=== PATIENT | female | born 1960 | race Caucasian/White ===

== ENCOUNTER 2016-12-19 08:45 | Day surgery (SDC) | payer BC ==
[~2016-12-19] VITALS: Ht 157.5 cm; Wt 54.9 kg
[~2016-12-19 08:45] MED LIST: ACETAMINOPHEN1 EACH PO; ZOFRAN ODT4 MG PO
--- NOTE | 2016-12-19 11:56 | NUR ---
12/19/16 1156 Deepika Fountain 1144 PATIENT ARRIVES TO PACU AWAKE OFF/ON, DROWSY. HAS NO FEELING IN RIGHT ARM . ELEVATED WITH PILLOW, AND ICE APPLIED. WARM BLANKETS AND BEAR HUGGER ON PER PATIENT REQUEST.
[2016-12-19] MEDS ORDERED: NORCO 7.5-3251 EACH PO (12:38)
--- NOTE | 2016-12-19 13:23 | NUR ---
SLING PLACED TO RIGHT ARM. PT UP TO THE BATHROOM WITH STBY ASST. TOLERATED WELL WITH VOID NOTED. PT BACK TO BED AND REQUESTING TO DC HOME.
--- NOTE | 2016-12-20 08:18 | OR ---
[facility] [address] [place], [place] [address] Signed DATE OF SERVICE: 12/19/2016 PREOPERATIVE DIAGNOSIS: Distal radial fracture of right with displacement. POSTOPERATIVE DIAGNOSIS: Distal radial fracture of right with displacement. PROCEDURE PERFORMED: Open reduction and internal fixation. SURGEON: Sachin Best MD ANESTHESIA: General. SPECIMENS OR COMPLICATIONS: There were no specimens or complications. TOURNIQUET TIME: Was about 40 minutes. WHAT WAS DONE: The patient was taken to the operating room. After anesthesia was induced and the airway secured, the right upper extremity was positioned, prepped and draped in a routine sterile fashion. The fracture was manipulatively reduced and then I exsanguinated the arm with the Esmarch bandage. Pneumatic tourniquet was inflated to 250 mmHg pressure and we placed the patient in 10 pounds of fin keyon trap traction. A volar incision was made directly over the FCR tendon. Skin was divided sharply beginning at the distal wrist flexion crease and extending proximally for about 6 cm. After dividing the skin, subcutaneous tissue was bluntly spread. The FCR tendon sheath was opened on its volar than on its dorsal surface. A fingertip was used to sweep all the volar contents in an ulnar direction and 2 small self-retaining retractors were placed. A portion of the was then released and the fracture site identified. The fracture reduction was then finetuned using a dental pick tool and a small Hastings elevator. We then placed an 8 x 3 hole distal volar radial plate and aligned it under fluoroscopic control. It was secured proximally with three 2.7 mm screws and distally with four smooth 1.8 mm pegs. AP, lateral and oblique fluoroscopy confirmed a good reduction. The wound was gently irrigated and closed in standard fashion. A sterile dressing, a bulky dressing, and a volar splint were placed. The patient was awakened to the recovery room where she arrived in stable condition. Counts were correct and antibiotic protocols were followed. Electronically Signed By: SACHIN BEST MD 12/20/16817 PATIENT NAME: IVONNE GAN OPERATIVE REPORT DATE OF : 56 PHYSICIAN: SACHIN BEST MD REPORT #: [id number] REPORT IS CONFIDENTIAL AND NOT TO BE RELEASED WITHOUT AUTHORIZATION [address] [address] Signed Sachin Best MD WFB/Modl /[id number] Electronically Signed By: SACHIN BEST MD 12/20/16817 PATIENT NAME: IVONNE GANE OPERATIVE REPORT DATE OF : 56 PHYSICIAN: SACHIN BEST MD REPORT #: [id number] REPORT IS CONFIDENTIAL AND NOT TO BE RELEASED WITHOUT AUTHORIZATION
== END 2016-12-19 13:30 | disposition home or self-care (01) ==
LOC: DS 08:45 → OPS 08:45 → DS 11:00 → OPS 11:00
PROVIDERS: Orthopaedic Surgery
PROC: 0PSH04Z Reposition Right Radius with Internal Fixation Device, Open Approach (ICD-10-PCS; principal; 2016-12-19 10:00)
DX: S52.501A Unspecified fracture of the lower end of right radius, initial encounter for closed fracture (principal); Z88.0 Allergy status to penicillin; Z88.2 Allergy status to sulfonamides; Z88.5 Allergy status to narcotic agent
CPT/HCPCS: 01830; 64415; 64417; 73100; 73110; 76942; C1713; J0690; J1100; J2250; J2405; J2704; J2795; J3010; J7120

== ENCOUNTER 2021-10-05 14:06 | Emergency (ER) | payer BC ==
[~2021-10-05] VITALS: Ht 157.5 cm; Wt 63.5 kg
[~2021-10-05 14:06] MED LIST changes: +NORCO 5-325 TA1 EACH PO; +NORCO 7.5-3251 EACH PO
== END 2021-10-05 15:51 | disposition home or self-care (01) ==
LOC: ED 14:06
DX: R20.2 Paresthesia of skin (principal); F17.210 Nicotine dependence, cigarettes, uncomplicated; Z88.2 Allergy status to sulfonamides; Z88.0 Allergy status to penicillin; Z88.8 Allergy status to other drugs, medicaments and biological substances
CPT/HCPCS: 99283

== ENCOUNTER 2022-02-15 07:20 | Day surgery (SDC) | payer BC ==
[~2022-02-15] VITALS: Ht 157.5 cm; Wt 63.2 kg
[~2022-02-15 07:20] MED LIST changes: +ULTRAM50 MG PO
[2022-02-15] MEDS ORDERED: AMLODIPINE BESYL5 MG PO (07:54)
[2022-02-15] MEDS ORDERED: LOSARTAN POTAS100 MG PO (07:55)
[2022-02-15] MEDS ORDERED: FLUOXETINE HCL20 MG PO (07:55)
[2022-02-15] MEDS ORDERED: TOPROL XL50 MG PO (07:55)
[2022-02-15] MEDS ORDERED: OXYCODONE HCL5 MG PO (11:27)
[2022-02-15] MEDS ORDERED: SENNA LAX8.6 MG PO (11:27)
[2022-02-15] MEDS ORDERED: GABAPENTIN300 MG PO (11:27)
[2022-02-15] MEDS ORDERED: DICLOFENAC SODI75 MG PO (11:27)
--- NOTE | 2022-02-15 11:40 | NUR ---
02/15/22 1140 Deepika Webb 1123 PATIENT ARRIVES TO PACU AWAKE OFF/ON, BUT DROWSY. RESTING WITH EYES CLOSED, WHEN AWAKE REPORTS PAIN AT 7/10, THEN BACK TO SLEEP. WARM BLANKETS AND BRET PAWS ON PER REQUEST. 1138 PATIENT AWAKE OFF/ON, BUT STILL VERY DROWSY. MOSTLY RESTING WITH EYES CLOSED. WHEN ASKED PATIENT REPORTS PAIN OF 7/10, THEN BACK TO SLEEP. RESP EVEN AND UNLABORED, OXYGEN OFF.
--- NOTE | 2022-02-15 13:05 | NUR ---
PROVIDED PATIENT WITH JELLO AND CRACKERS. DENIES NAUSEA. MEDICATED FOR PAIN PER EMAR. STOOD AT EDGE OF BED WITH RN AND PHYSICAL THERAPIST. PT BECOMES DIZZY AND "WOOZY". RETUREND TO BED AND POSITIONED FOR COMFORT. CALL LIGHT IN REACH.
--- NOTE | 2022-02-15 13:38 | NUR ---
CRACKERS AND WATER GIVEN TO PATIENT. REPORT GIVEN TO TREMAYNE HERNANDES WHO IS ASSUMING CARE OF THIS PATIENT.
--- NOTE | 2022-02-15 14:31 | NUR ---
LE 1340 PATIENT SITTING IN BED. LEG ELEVATED. CRYO CUFF APPLIED TO PATIENT. SCD FOOT PUMPS ON. PATIENT IS ALERT AND ORIENTED. PATIENT STATES PAIN IS RIGHT AROUND A 2/10 AT SURGICAL SITE. PATIENT DENIES BEING NAUSEATED. PATIENT DRINKING WATER AND TALKING TO FAMILY. LUNCH ORDERED FOR PATIENT. LE 1400 PT IN WITH PATIENT. BLOOD PRESSURE SITTING AT EDGE OF BED. 76/50. PATIENT BACK TO BED. BLOOD PRESSURE TAKEN 100/53. PATIENT FEELS LIGHT HEADED. JEREMY MONTE NOTIFIED. 500 MLS BOLUS STARTED. PATIENT EATING LUNCH. FAMILY AT BEDSIDE. CALL LIGHT WITHIN REACH NO FUTHER NEEDS.
--- NOTE | 2022-02-15 14:48 | NUR ---
LE 1430 PATIENT BLOOD PRESSURE 103/55 MAP (68). JEREMY MONTE NOTIFIED. PATIENT GIVEN ANOTHER 500 ML BOLUS. PATIENT BLADDER SCANED 191 MLS. LE 1445 PATIENT ALERT AND ORIENTED. BREATHING EQUAL AND UNLABORED. OXYGEN SATURATIONS ABOVE 95% ON ROOM AIR. IVF INFUSING. SCD'S ON YISEL FEET. CRYO CUFF IN PLACE. RIGHT EXTERMITY ELEVATED. PATIENT STATES PAIN IS TOLERABLE. PATIENT DENIES BEING NAUSEATED. PATIENT DENIES NEEDING TO VOID. CALL LIGHT WITHIN REACH NO FUTHER NEEDS. NO QUESTIONS AT THIS TIME.
--- NOTE | 2022-02-15 16:30 | NUR ---
LE 1515 PT IN WITH PATIENT. PATIENT AMBULATED TO RESTROOM. PATIENT VOIDED 200 MLS OF CONCENTRATED YELLOW URINE. LE 1530 PATIENT BACK WITH PT. PATIENT LOWER PART OF DRESSING SATURATED WITH PETER RED BLOOD. DR. AVILES NOTIFIED. DRESSING RENFORCED WITH 3 ABD PADS AND 3 CAST PADDING. 2 PASQUALE WRAPS AROUND. PATIENT SAYS PAIN IS TOLERABLE. VERBAL ORDER FOR TXA. LE [address] AVILES WANTS PATIENT TO STAY FOR EXTENDED STAY. NEWSPAPER MANAGER NOTIFIED. LE 1605 PATIENT IS ALERT AND ORIENTED. BREATHING EQUAL AND UNLABORED. OXYGEN SATURATIONS ABOVE 90% ON ROOM AIR. PATIENT DENIES PAIN OR BEING NAUSEATED. PATIENT SALINE LOCKED. CRYO CUFF ON. SCD'S ON FEET. LEG ELEVATED. CALL LIGHT WITHIN REACH NO FUTHER NEEDS. NO QUESTIONS AT THIS TIME.
--- NOTE | 2022-02-15 17:30 | NUR ---
PT ARRIVES TO CCU FLOOR VIA STRETCHER WITH DS RN - PT ALERT AND ORIENTED. DENIES PAIN. AMBULATES FROM STRETCHER TO BED WITHOUT DIFFIUCLTY. SCDS IN PLACE. PT ORDERED DINNER. VS STABLE, BP WNL, AFEBRILE, ON ROOM AIR. PT ORIENTED TO ROOM AND CALL LIGHT, DENIES FURTHER NEEDS AT THIS TIME.
--- NOTE | 2022-02-15 17:47 | NUR ---
LE 1740 PATIENT WAS TRANSFERRED TO CRITICAL CARE UNIT ROOM 126 FOR OBSERVATION. PATIENT WAS TRANSFERRED TO BED. TOLERATED IT WELL. REPORT GIVEN TO TREMAYNE HERNANDEZ. NO QUESTIONS AT THIS TIME. 3 RN'S IN ROOM AT THIS TIME. NO FUTHER NEEDS.
--- NOTE | 2022-02-15 18:16 | NUR ---
RN IN ROOM TO ASSIST PT TO THE BATHROOM USING FWW - PT VOIDS WITHOUT PAIN OR DIFFICULTY, BM NOTED. PT ABLE TO PROVIDE SELF CARE WITH TOILETING. BACK TO BED WITH CALL LIGHT IN REACH.
--- NOTE | 2022-02-15 20:30 | NUR ---
PATIENT REPORTS PAIN "GETTING UP THERE", 8/10 BUT TOLERABLE. PATIENT MOVES EASILY TO GET UP THE BATHROOM. MINIMAL ASSIST REQUIRED. PATIENT VOIDED AND RETURNED TO BED. NO SIGNS OF BLEEDING ON HER DRESSING, ON-Q PUMP IN PLACE. PRN OXY PROVIDED WITH SCHEDULED TORADOL. PATIENT IS SL. GOOD APPETITE. NO NAUSEA. VS STABLE. CRYO REFILLED WITH ICE AND IN PLACE. FOOT PUMPS IN PLACE. TEDHOSE ON YISEL LOWER EXTREMITIES. PATIENT DENIED FURTHER NEEDS. CALL LIGHT IN REACH. LIGHTS DIMMED.
--- NOTE | 2022-02-15 23:00 | NUR ---
PATIENT WOKE EASILY WHEN RN ENTERED THE ROOM. ASSISTED UP TO THE BATHROOM. PATIENT REQUIRES MINIMAL ASSIST. PATIENT USES FWW APPROPRIATELY. VOIDED AND RETURNED TO BED. SCHEDULED MEDS PROVIDED. CRYO CUFF AND FOOT PUMPS BACK IN PLACE. PATIENT EDUCATED ON NOT ELEVATED KNEE ON ANY PILLOW OR BLANKETS. PATIENT VERBALIZED UNDERSTANDING. DOES NOT WANT HEEL PROTECTORS AND STATES "I ALREADY HAVE ENOUGH STUFF ON ME". CALL LIGHT IN REACH. LIGHTS DIMMED.
--- NOTE | 2022-02-16 00:30 | NUR ---
PATIENT APPEARS TO BE RESTFUL. EYES CLOSED. RR 16. CALL LIGHT IN REACH.
--- NOTE | 2022-02-16 02:00 | NUR ---
PATIENT APPEARS RESTFUL; DOES NOT STIR WHILE RN IN ROOM. ALLOWED PATIENT TO REST. CALL LIGHT IN REACH.
--- NOTE | 2022-02-16 04:00 | NUR ---
PATIENT UP TO THE BATHROOM. REPORTS INCREASED PAIN. NO SIGNS OF BLEEDING NOTED ON DRESSING. PRN AND SCHEDULED MEDS PROVIDED. FRESH ICE IN CRYO AND POSITIONED RIGHT KNEE APPROPRATELY. PATIENT MOVES EASILY AND AMBULATES WITH MINIMAL ASSIST.
[2022-02-16] MEDS ORDERED: BRIMONIDINE TART5 ML OU (08:20)
[2022-02-16] MEDS ORDERED: LATANOPROST2.5 ML OU (08:21)
[2022-02-16] MEDS ORDERED: FLUOXETINE HCL10 MG PO (08:22)
[2022-02-16] MEDS ORDERED: TIMOLOL MALEATE5 M2 OU (08:23)
--- NOTE | 2022-02-16 08:51 | NUR ---
PATIENT UP TO BR WITH THIS RIDE ASSEMBLY SUPERVISOR AND FWW. PATIENT PAINFUL BUT TOLERATED WELL. PATIENT BACK TO BED WITH FOOT SCDS AND CRYO CUFF IN PLACE. CRYO REFILLED WITH ICE. PHARMACY AT BEDSIDE AT THIS TIME.
--- NOTE | 2022-02-16 08:58 | NUR ---
MED REC COMPLETE
--- NOTE | 2022-02-17 06:53 | OR ---
[facility] [address] [facility] [place], [place] [address] Signed DATE OF OPERATION: 02/15/2022 SURGEON: Singh Hunt MD PREOPERATIVE DIAGNOSIS: Severe erosive degenerative joint disease, right knee. POSTOPERATIVE DIAGNOSIS: Severe erosive degenerative joint disease, right knee. PROCEDURE PERFORMED: Right total knee arthroplasty with Zack. ORDER MANAGER: Ludy Mahmood PA-C ANESTHESIA: Spinal. BLOOD LOSS: 185 mL. IMPLANTS: [place] Triathlon size 3, 16 mm polyethylene and 32 mm patella. BRIEF HISTORY: Ivonne is a 62-year-old female with progressive worsening of severe erosive osteoarthritis in the right knee. She had significant valgus with erosion posteriorly. Risks and benefits of operative treatment were discussed with her and she elected to proceed. DESCRIPTION OF PROCEDURE: Once consent was obtained, she was taken to the operating room after adequate anesthesia. She was placed on operating room table. All downside pressure points well padded. The right leg was prepped and draped in a standard sterile fashion. The leg was approached through an anterior midline incision, carried through skin and subcutaneous tissue and a mid vastus arthrotomy was performed. The infrapatellar fat pad was excised and the MCL, which was quite flimsy was elevated around to the mid medial portion. Because of the valgus any more release. The anterior horns of both menisci were missing. The ACL was missing. The knee was flexed and the Zack Electronically Signed By: SINGH HUNT MD 02/17/22 0653 PATIENT NAME: IVONNE GAN OPERATIVE REPORT DATE OF : 56 REPORT #: [id number] PHYSICIAN: SINGH HUNT MD PCP: HENRI NEWMAN PA-C REPORT IS CONFIDENTIAL AND NOT TO BE RELEASED WITHOUT AUTHORIZATION [address] [address] Signed array was placed in the medial femoral condyle along with the checkpoint. The checkpoint was placed in the proximal tibia and the tibial array was placed percutaneously into the tibia. The leg was then registered with the computer as was Dictation Ends Here Singh Hunt MD BA/MODL /[id number] Copies: ~ Electronically Signed By: SINGH HUNT MD 02/17/22 0653 PATIENT NAME: IVONNE GAN OPERATIVE REPORT DATE OF : 56 REPORT #: [id number] PHYSICIAN: SINGH HUNT MD PCP: HENRI NEWMAN PA-C REPORT IS CONFIDENTIAL AND NOT TO BE RELEASED WITHOUT AUTHORIZATION
--- NOTE | 2022-02-17 06:53 | OR ---
[facility] [address] [place] [address] Signed DATE OF OPERATION: 02/15/2022 SURGEON: Singh Hunt MD PREOPERATIVE DIAGNOSIS: Severe degenerative joint disease, right knee. POSTOPERATIVE DIAGNOSIS: Severe degenerative joint disease, right knee. PROCEDURE PERFORMED: Right total knee arthroplasty with Zack. REPLANTING MACHINE CREW: Ludy Mahmood Dictation Ends Here Singh Hunt MD BA/HILDAL /[id number] Copies: ~ Electronically Signed By: SINGH HUNT MD 02/17/22 0653 PATIENT NAME: IVONNE GAN OPERATIVE REPORT DATE OF : 56 REPORT #: [id number] PHYSICIAN: SINGH HUNT MD PCP: HENRI NEWMAN PA-C REPORT IS CONFIDENTIAL AND NOT TO BE RELEASED WITHOUT AUTHORIZATION
--- NOTE | 2022-02-17 06:53 | OR ---
[facility] [address] [place], [place] [address] Signed DATE OF OPERATION: 02/15/2022 SURGEON: Singh Hunt MD PREOPERATIVE DIAGNOSIS: Degenerative joint disease, right knee. POSTOPERATIVE DIAGNOSIS: Degenerative joint disease, right knee. PROCEDURE PERFORMED: Right total knee arthroplasty with Zack. BOOK SORTER: Ludy Mahmood PA-C. Ludy was present and critical for all portions of procedure. ANESTHESIA: Spinal. BLOOD LOSS: 185 mL. IMPLANTS: [place] Triathlon size 3, 16 mm polyethylene and a 32 mm patella. BRIEF HISTORY: Ivonne is a 62-year-old female with progressive worsening of severe osteoarthritis of the knee with posterolateral erosion. She had significant valgus. Risks and benefits of operative treatment were discussed with her and she elected to proceed. DESCRIPTION OF PROCEDURE: Once consent was obtained, she was taken to the operating room. After adequate anesthesia, she was placed on operating room table. All downside pressure points well padded. Hip bump was placed. The leg was then prepped and draped in a standard sterile fashion. The leg was approached through standard anterior midline incision, carried through skin and subcutaneous tissue. The mid vastus arthrotomy was performed. There was extensive fluid in the knee. The MCL was elevated around to the mid medial portion. It was extremely thin and poor substance. Infrapatellar fat pad was excised. The knee was then flexed. The navigation rays were placed in the proximal tibia and distal Electronically Signed By: SINGH HUNT MD 02/17/22 0653 PATIENT NAME: IVONNE GAN OPERATIVE REPORT DATE OF : 56 REPORT #: [id number] PHYSICIAN: SINGH HUNT MD PCP: HENRI NEWMAN PA-C REPORT IS CONFIDENTIAL AND NOT TO BE RELEASED WITHOUT AUTHORIZATION [facility] [address] [place], [place] [address] Signed femur, medial femoral condyle along with the checkpoints. Once this was accomplished, the leg was registered with the computer and the fine anatomic points of the knee registered. Due to the erosive nature of her arthritis and extreme laxity, it was difficult to ligamentously balance the knee, we were able to get it done and make some adjustments to the prosthesis. Once this was accomplished, the robot was brought in and the four straight cuts were made with care taken to protect the MCL and patellar tendon. The two angled cuts were then made. Once this was accomplished, the posterior osteophytes removed off the femur and any remaining osteophytes on the lateral side. The knee was trialed initially with 13, but that was found to be little bit loose, so we trialed with a 16, which felt good. Once this was accomplished, then the patella was cut sized and drilled for 32 patella. The distal femur was drilled and the proximal tibia was finished using the keel punch. There was a little bit of a defect posterolaterally that was then drilled with a small drill for cementation. We did decide to cement the tibia and the patella secondary to poor bone quality. The cement was mixed. Once it reached proper consistency, it was placed on the tibia and patella and the corresponding bone. The tibia was impacted until it was well seated. The 16 polyethylene was snapped into position. The femur was impacted until it was well-seated. The knee was extended and nicely loaded. Patella was clamped into position, all excess cement from both the tibia and femur were removed. The cement was allowed to harden. Once it was hardened sufficiently, the clamp was removed. The knee was taken through range of motion. There was excellent tracking of the patella. The knee was stable through all range of motion. The knee was pulse lavaged at intervals throughout the procedure. A total of 3 L normal saline was used. There was an Irrisept soak in the middle. The On-Q pain pump was percutaneously placed into the adductor canal from the suprapatellar pouch. The arthrotomy was then closed using #2 Stratafix, subcutaneous tissue with 0-Quill and the skin with madhu. The wound was dressed with an Acticoat 7 dressing, ABD, and Magdiel wrap. She tolerated the procedure well. All sponge, needle, and instrument counts were correct. Singh Hunt MD BA/MODL /[id number] Electronically Signed By: SINGH HUNT MD 02/17/22 0653 PATIENT NAME: IVONNE GAN OPERATIVE REPORT DATE OF : 56 REPORT #: [id number] PHYSICIAN: SINGH HUNT MD PCP: HENRI NEWMAN PA-C REPORT IS CONFIDENTIAL AND NOT TO BE RELEASED WITHOUT AUTHORIZATION [address] [address] Signed Copies: ~ Electronically Signed By: SINGH HUNT MD 02/17/22 0653 PATIENT NAME: IVONNE GAN OPERATIVE REPORT DATE OF : 56 REPORT #: [id number] PHYSICIAN: SINGH HUNT MD PCP: HENRI NEWMAN PA-C REPORT IS CONFIDENTIAL AND NOT TO BE RELEASED WITHOUT AUTHORIZATION
== END 2022-02-16 10:20 | disposition home or self-care (01) ==
LOC: DS 07:20 → CCU 17:20 → DS 02-16 10:20
PROVIDERS: ATTEND Specialist
PROC: 0SRC0J9 Replacement of Right Knee Joint with Synthetic Substitute, Cemented, Open Approach (ICD-10-PCS; principal; 2022-02-15 09:45)
DX: M17.11 Unilateral primary osteoarthritis, right knee (principal); F41.9 Anxiety disorder, unspecified; F32.9 Major depressive disorder, single episode, unspecified; E78.5 Hyperlipidemia, unspecified; I10 Essential (primary) hypertension; F17.210 Nicotine dependence, cigarettes, uncomplicated; Z88.0 Allergy status to penicillin; Z88.2 Allergy status to sulfonamides; Z88.8 Allergy status to other drugs, medicaments and biological substances
CPT/HCPCS: 64447; 76942; 97116; 97161; A9270; C1713; C1776; J0690; J1885; J2001; J2250; J2704; J2795; J7121